=== PATIENT | male | born 1960 | race Caucasian/White ===

== ENCOUNTER → 2016-06-07 | Outpatient (CLI) | payer BC ==
[~2016-06-07] MED LIST: AMOXICILLIN500 MG PO; ASPIRIN EC81 MG PO; BYETTA10 MCG/0.0 SUB-Q; CLEOCIN HCL300 MG; CLEOCIN150 MG PO; CLINDAMYCIN150 MG PO; COLACE100 MG PO; COREG25 MG PO; COREG6.25 MG PO; CPAP INH; CRESTOR40 MG PO; CYMBALTA30 MG PO; CYMBALTA60 MG PO; DULCOLAX10 MG R; EFFIENT10 MG; FLORASTOR250 MG PO; GLUCOTROL XL10 MG PO; JANUVIA 100 MG100 MG PO; LANTUS (IN100 UNIT/M SUB-Q; MILK OF MA400 MG/5 M PO; MIRALAX17 GM PO; MULTAQ400 MG PO; NITROSTAT0.4 MG SL; NORCO 10-325 T1 EACH PO; NORVASC5 MG PO; OXYGEN M-15 INH; PERCOCET 5-3251 EACH PO; PRINIVIL20 MG PO; SENOKOT S (S1 TABLET PO; SINEMET 10/1001 TAB PO; TYLENOL EXTRA500 MG PO; VALIUM5 MG PO; VANCOMYCIN1 G1 IV; VIIBRYD40 MG PO; XARELTO15 MG PO; ZYLOPRIM100 MG PO
== END | disposition disaster alternative care site (69) ==
LOC: GRAD 05-25 09:30
DX: C64.9 Malignant neoplasm of unspecified kidney, except renal pelvis (principal)